=== PATIENT | female | born 2000 | race Caucasian/White ===

== ENCOUNTER 2022-10-25 19:46 | Emergency (ER) | payer MEDICAID ==
[~2022-10-25] VITALS: Ht 170.2 cm; Wt 136.4 kg
[2022-10-25 19:47] VITALS: O2SAT 100
[2022-10-25 20:29] VITALS: BP 136/82; PULSE 76; RESP 18; TEMP 98.2
== END 2022-10-25 20:31 | disposition home or self-care (01) ==
LOC: ER 19:46
DX: L03.032 Cellulitis of left toe (principal)
CPT/HCPCS: 99281